=== PATIENT | male | born 1980 | race Two or more races ===

== ENCOUNTER → 2016-07-16 | Outpatient (CLI) | payer OTHER ==
--- NOTE | 2016-07-16 18:36 | REP ---
Clinical: Pain. Technique: AP and angled views of the left clavicle. Findings: No acute fracture dislocation. Sternoclavicular and acromioclavicular joints appear intact. Impression: No acute fracture or dislocation. Signed by Cesar Winters MD 07/16/2016 06:28 P
--- NOTE | 2016-07-16 18:37 | REP ---
Clinical: Pain . Technique: Internal rotation, external rotation, and Y view left shoulder . Findings: No acute fracture or dislocation. The acromioclavicular and glenohumeral joints are intact and normal for age. No periarticular calcifications. Sub acromial space is normal. Surrounding soft tissues are unremarkable. Impression: Normal left shoulder radiographs. Signed by Cesar Winters MD 07/16/2016 06:29 P
== END ==
LOC: M LRY 18:14
PROVIDERS: ATTEND Physician Assistant
DX: M25.512 Pain in left shoulder (principal)

== ENCOUNTER 2018-03-05 14:44 | Emergency (ER) | payer OTHER ==
[~2018-03-05] VITALS: Ht 190.5 cm; Wt 102.3 kg
[2018-03-05] MEDS ORDERED: VALA500T5 PO (14:52)
[2018-03-05] MEDS ORDERED: GABA-845 PO (14:52)
[2018-03-05] MEDS ORDERED: METHOCARBAMOL 750 MG TAB PO ONE (15:30)
[2018-03-05] MEDS ORDERED: KETOROLAC 60 MG/2 ML VIAL (J1885) IM ONE (15:30)
[2018-03-05] MEDS ORDERED: NORCO, ANEXSIA 5/325MG TABLET (HYDROcodone/ACETAMINOPHEN) PO ONE (16:15)
[2018-03-05] MEDS ORDERED: ROBA500T PO (17:02)
[2018-03-05] MEDS ORDERED: NORCOTAB PO (17:02)
[2018-03-05] MEDS ORDERED: KETO10TAB PO (17:02)
[2018-03-05 17:09] VITALS: BP 137/72
== END 2018-03-05 17:16 | disposition home or self-care (01) ==
LOC: M ED 14:44
DX: M54.42 Lumbago with sciatica, left side (principal); Z79.899 Other long term (current) drug therapy
CPT/HCPCS: 96372; 99283; J1885

== ENCOUNTER 2018-03-23 16:53 | Emergency (ER) | payer OTHER ==
[~2018-03-23] VITALS: Ht 190.5 cm; Wt 102.3 kg
[~2018-03-23 16:53] MED LIST: GABA-845 PO; KETO10TAB PO; NORCOTAB PO; ROBA500T PO; VALA500T5 PO
[2018-03-23] MEDS ORDERED: TIZA4CAP (16:59)
[2018-03-23] MEDS ORDERED: KETO10TAB PO (18:22)
[2018-03-23] MEDS ORDERED: OXYC1TAB23 PO (18:22)
[2018-03-23 18:29] VITALS: BP 129/90
[2018-03-23] MEDS ORDERED: KETOROLAC 60 MG/2 ML VIAL (J1885) IM ONE (18:30)
[2018-03-23] MEDS ORDERED: OXYCODONE/APAP 5MG/325MG(BULK FOR ED) 1 TABLET PO ONE (18:30)
== END 2018-03-23 19:00 | disposition home or self-care (01) ==
LOC: M ED 16:53
DX: M51.27 Other intervertebral disc displacement, lumbosacral region (principal); Z79.899 Other long term (current) drug therapy; Z91.030 Bee allergy status
CPT/HCPCS: 96372; 99283; J1885

== ENCOUNTER 2018-04-06 14:16 | Day surgery (SDC) | payer OTHER ==
[~2018-04-06] VITALS: Ht 195.6 cm; Wt 103.4 kg
[~2018-04-06 14:16] MED LIST changes: +BACITRACIN PWD 50,000 UNITS VIAL As Ordered ONE; +BUPIVACAINE HCL 0.25% 10 ML VIAL As Ordered ONE; +BUPIVACAINE LIPOSOME/PF 1.3% 20ML VIAL (13.3MG/ML)(EXPAREL)(C9290 PER1MG) As Ordered ONE; +BUPIVACAINE/EPIN 0.5% 30 ML VIAL As Ordered ONE; +EPINEPHrine INJ 1 MG/ML 1ML AMP As Ordered ONE; +OXYC1TAB23 PO; +THROMBIN SOLN 20,000 UNITS KIT As Ordered ONE; +TIZA4CAP; +TRANEXAMIC ACID 100 MG/ML 10ML VIAL As Ordered ONE
[2018-04-06] MEDS ORDERED: PERCOCET 5MG/325MG TAB PO ONE (14:30)
[2018-04-06] MEDS ORDERED: CelecoXIB 400 MG CAP PO ONE (14:30)
[2018-04-06] MEDS ORDERED: MIDAZOLAM INJ 2 MG/2 ML VIAL (J2250) As Ordered ONE (16:51)
[2018-04-06] MEDS ORDERED: fentaNYL 250 MCG/5 ML INJECTION (J3010) As Ordered ONE (16:51)
[2018-04-06] MEDS ORDERED: PROPOFOL 200 MG/20 ML VIAL As Ordered ONE (16:51)
[2018-04-06] MEDS ORDERED: LIDOCAINE 2% INJ 100 MG/5 ML SDV (FOR ANES.) As Ordered ONE (16:51)
[2018-04-06] MEDS ORDERED: ROCURONIUM BROMIDE 50 MG/5 ML VIAL As Ordered ONE (16:51)
[2018-04-06] MEDS ORDERED: BUPIVACAINE/EPIN 0.25% 30 ML VIAL As Ordered ONE (17:59)
[2018-04-06] MEDS ORDERED: NEOSTIGMINE 10 MG/10 ML VIAL (J2710) As Ordered ONE (18:15)
[2018-04-06] MEDS ORDERED: GLYCOPYRROLATE INJ 0.2 MG/ML 2 ML VIAL As Ordered ONE (18:15)
[2018-04-06] MEDS ORDERED: dexameTHASONE 4 MG/ML 1ML VIAL (J1100) As Ordered ONE (18:15)
[2018-04-06] MEDS ORDERED: ONDANSETRON 4MG/2ML VIAL (J2405) As Ordered ONE (18:15)
[2018-04-06] MEDS ORDERED: HYDROmorphone HCL 2 MG/ML 1ML VIAL (J1170) As Ordered ONE (18:24)
[2018-04-06] MEDS ORDERED: LABETALOL HCL 100 MG/20 ML VIAL As Ordered ONE (18:49)
[2018-04-06] MEDS ORDERED: HYDROMORPHONE HCL 0.5 MG/ 0.5 ML SYRINGE (J1170 PER 1) IV PRN ×2 (20:15)
[2018-04-06] MEDS ORDERED: PERCOCET 5MG/325MG TAB PO PRN (20:15)
[2018-04-06] MEDS ORDERED: LR 1,000 ML IV SCH ×2 (20:15)
[2018-04-06] MEDS ORDERED: NORCO, ANEXSIA 5/325MG TABLET (HYDROcodone/ACETAMINOPHEN) PO PRN (20:15)
[2018-04-06] MEDS ORDERED: PROMETHAZINE INJ 25 MG/ML VIAL (J2550) IV PRN (20:15)
[2018-04-06] MEDS ORDERED: ONDANSETRON 4MG/2ML VIAL (J2405) IV PRN (20:15)
[2018-04-06] MEDS ORDERED: fentaNYL 100 MCG/2 ML INJECTION (J3010) IV PRN (20:15)
[2018-04-06] MEDS ORDERED: NORTRIPTYLINE 10 MG CAP PO PRN (20:15)
[2018-04-06 20:45] VITALS: BP 150/77
[2018-04-06 21:15] VITALS: BP 140/92
[2018-04-06 22:15] VITALS: BP 143/75
[2018-04-06] MEDS: GABAPENTIN 300 MG CAP PO SCH (22:17)
[2018-04-06] MEDS: PERCOCET 5MG/325MG TAB PO PRN (22:23)
[2018-04-06 23:15] VITALS: BP 141/78
[2018-04-07 00:15] VITALS: BP 139/76
[2018-04-07 01:15] VITALS: BP 134/71
[2018-04-07] MEDS: PERCOCET 5MG/325MG TAB PO PRN (06:30)
[2018-04-07] MEDS ORDERED: PERC5TAB12 PO (06:31)
--- NOTE | 2018-04-07 07:42 | REP ---
Lumbar spine, portable study in the operating room, lateral view: There is a metallic probe projected at the L5 S1 level over the posterior elements. Vertebral body heights and alignment are normal. There is disc space narrowing at L5 S1. Electronically Signed by Clive Buck MD 04/07/2018 07:33 A
[2018-04-07] MEDS: GABAPENTIN 300 MG CAP PO SCH (08:33)
[2018-04-07] MEDS ORDERED: CelecoXIB (CeleBREX) 100 MG CAP PO ONE (09:00)
--- NOTE | 2018-04-10 17:10 | RO ---
DATE OF PROCEDURE: 04/07/2018 PREOPERATIVE DIAGNOSIS: Left L5-S1 disc extrusion with inferior migration producing left lower extremity intractable radicular pain. POSTOPERATIVE DIAGNOSIS: Left L5-S1 disc extrusion with inferior migration producing left lower extremity intractable radicular pain. PROCEDURE PERFORMED: Left L5-S1 microdiscectomy including removal of disc material to decompress the thecal sac and traversing S1 nerve root. INTRAOPERATIVE FINDINGS: Include large extruded disc fragment in L5-S1, multiple pieces. SURGEON: Chris Lassiter MD VICE PRESIDENT LENDING: Kalee Parikh PA-C ANESTHESIA: General. ESTIMATED BLOOD LOSS: Less than 40 mL, replaced with crystalloid. No complications. INDICATIONS: Discomfort radiating down the left lower extremity for a number of months. MRI evidence of a large disc extrusion at L5-S1 with compression of the S1 as the S2 nerve roots and producing some spinal stenosis. The patient has elected for operative intervention. Consent reviewed in detail with the patient, including a ha discussion of the pathology involved, procedure performed, the procedure proposed, alternatives including doing nothing, risks including but not limited to pain, failure, nerve injury, need for more surgery, infection, and other issues. The patient agrees to the proceed. DESCRIPTION OF PROCEDURE: Operative course: Identified in holding area. Site side verified. Brought to the operating room. Once anesthesia was administered, we positioned the patient on the Cuong frame for exposure of the lumbar spine. We ensured that axillary rolls were utilized, that the head was well positioned. Knees slightly flexed and Cuong frame elevated. Prepped and draped in usual fashion. I utilized 3.25 loupe identification for the first portion of the procedure. I stood on the patient's left. Ms. Parikh stood on the patient's right. The landmarks were palpated. The line of incision was identified and infiltrated with 0.25% Marcaine with epinephrine. Incision made with the 10 blade, developed down through skin and subcuticular tissues to the posterior lumbar fascia. Crossing of the posterior lumbar fascia was appreciated. I made the incision over the posterior lumbar fascia at the L5-S1 level, developed down to the posterior lamina of L5, drilled a 5-mm divot in the L5 posterior left lamina, placed a Singh-Ole probe, obtained a cross-table lateral x-ray verifying L5-S1. Once this was accomplished, we finished the dissection to expose the L5-S1 interspace on the left, placed retractors. Leksell's were utilized to remove some of the posterior lamina of L5. We then brought in the operating microscope and exchanged my loupes. Using the scope, Ms. Parikh was able to function as welder first class. The high-speed bur was utilized by me to implement the left unilateral laminotomy at the L5 level, protecting the lateral aspect of the facet. Approximately 3 mm of the medial aspect of the facet was involved in the dissection and exposure. Dissection continued through the bare area of S1. Curettes were utilized to elevate ligamentum flavum. Leksell's were utilized to remove ligamentum flavum. Thecal sac was identified. The S1 nerve root was elevated by disc material. We used the suction Brigitte retractor to help expose the extruded disc material, which was subligamentous. 11 blade was utilized to open the rent in the posterior longitudinal ligament. A Singh-Ole was utilize to help probe the disc free. Davila pituitaries were utilized to grasp and remove disc in a piecemeal fashion. We verified the disc was removed by probing around the area. Some additional small fragments were removed. Bipolar cautery was utilized for hemostasis. Irrigation was accomplished. No cerebrospinal fluid (CSF) leak was appreciated. Retractors were removed. Posterior lumbar fascia was reapproximated with interrupted stitch, running Monocryl deep dermis with interrupted stitch. Prineo dressing applied. Once the Prineo was applied, we then moved the patient to the supine position, extubated, moved to recovery room in good condition. For further details, please refer to medical record.
== END 2018-04-07 09:35 | disposition home or self-care (01) ==
LOC: M SDC 14:16 → M MS5PR 21:10 → M SDC 04-07 09:35
PROVIDERS: ATTEND Orthopaedic Surgery
DX: M51.16 Intervertebral disc disorders with radiculopathy, lumbar region (principal); M51.26 Other intervertebral disc displacement, lumbar region; Z91.030 Bee allergy status; Z79.899 Other long term (current) drug therapy
CPT/HCPCS: 36415; 63030; 72110; 86850; 86900; 86901; 88304; 96365; 96366; J0690; J1100; J1170; J2250; J2405; J2710; J3010